=== PATIENT | female | born 1955 | race Caucasian/White ===

== ENCOUNTER 2021-01-18 13:33 | Outpatient (CLI) | payer MEDICARE, SELFPAY ==
--- NOTE | ~2021-01-18 | XR_ITS ---
XR chest 2V DATE: 01/18/2021 13:50 INDICATION: Chest tightness, shortness of breath. COPD. TECHNIQUE: 2 views COMPARISON: 08/31/2013 two-view chest FINDINGS: Mild discoid atelectasis or scarring in the left lower lung. The lungs appear mildly hyperi nflated but clear of infiltrate or consolidation. No pleural effusion or pulmonary vascular congestio n or pneumothorax. Normal heart size. No hilar or mediastinal enlargement. Diffuse osteopenia. IMPRESSION: Moderate hyperinflation; no active cardiopulmonary disease Reviewed, dictated and finalized at location A. D WRAPPER OPERATOR
== END 2021-01-18 13:34 | disposition home or self-care (01) ==
LOC: CHSIMG 13:37
PROVIDERS: PCP Nurse Practitioner Family; Visit Provider Nurse Practitioner Family
DX: J44.9 Chronic obstructive pulmonary disease, unspecified (principal)
CPT/HCPCS: 71046

== ENCOUNTER 2021-08-04 17:43 | Emergency (ER) | payer MEDICARE, SELFPAY ==
--- NOTE | ~2021-08-04 | XR_ITS ---
XR forearm LT 2V 08/04/2021 18:25 Indication: Dog bite. Procedure: 2 views of the left forearm Comparison: No prior studies for comparison. 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 There is loose body adjacent to the fi rst carpal metacarpal joint. There is soft tissue swelling overlying mid forearm no foreign bodies. N o acute fracture or traumatic malalignment. Impression: 1: No acute bone or joint abnormality. Reviewed, dictated and finalized at location A. Impression: 1: No acute bone or joint abnormality.
[2021-08-04 18:09] VITALS: BP 158/69; PULSE 83; RESP 17; TEMP 37.1; O2SAT 98
[2021-08-04 20:21] VITALS: BP 149/66; PULSE 88; RESP 18; O2SAT 100
--- NOTE | 2021-08-04 21:07 | ED.GENADULT ---
HPI - General Adult General Chief complaint: Animal Bite Stated complaint: Dog Bite Time Seen by Provider: 08/04/21 20:37 Source: patient, family and RN notes reviewed Mode of arrival: ambulatory Limitations: no limitations History of Present Illness HPI narrative: Patient is a 66-year-old female who presents with dog bites to the left arm she was with her son when she was playing with his dog and she was bit on the left forearm presents with gaping wounds of the left forearm. Patient notes mild aching pain she is unsure as to her tetanus status injury occurred just prior to arrival she denies any radicular symptoms or paresthesias Related Data Allergies Allergy/AdvReac Type Severity Reaction Status Date / Time No Known Allergies Allergy Verified 08/04/21 20:23 Review of Systems Review of Systems: All systems reviewed & are unremarkable except as noted in HPI and below PMFSH Past Medical History Medical History Asthma COPD (chronic obstructive pulmonary disease) Surgical History Surgical History History of tubal ligation Family History Family History Brother Family history of type 2 diabetes mellitus Mother , Age 58 Acute myocardial infarction Father Lung cancer Social History Social History Smoking packs per day: 1 Smoking cigarettes per day: 20.0 Years smoked: 40 Smoking pack-years: 40.00 Smoking status: Current every day smoker Alcohol intake: current Alcohol use details: social Substance use: never Substance use type: does not use Exam Narrative: GENERAL: Well-appearing, well-nourished, and in no acute distress. HEAD: Normocephalic, atraumatic. EYES: PERRLA and EOMI. ENT: Nares clear, no rhinorrhea or epistaxis. Mucous membranes moist. CHEST: Clear to auscultation. No respiratory distress. No wheezes rales or rhonchi HEART: Regular rate and rhythm. No murmur heard. Normal peripheral pulses. EXTREMITIES: Normal range of motion. No edema. Patient with gaping 4 cm irregular laceration mid forearm patient with another stellate gaping laceration adjacent measuring 2 cm in length. Another 1 cm approximated laceration of the forearm and several small puncture wound SKIN: Warm, dry, no rash. NEURO: No focal deficits. Alert and oriented x3. Neurovascularly intact. Capillary refill less than 2 seconds PSYCH: Normal mood and affect. Course Course Emergency Course: Patient presented with dog bites of the left upper extremity 2 of the bites were loosely approximated given the gaping nature patient's wounds were irrigated and scrubbed and cleaned and explored x-rays were unremarkable she has been given strict reasons to return her tetanus has been updated she feels comfortable with this treatment plan Vital Signs Vital signs: Vital Signs Temperature 98.7 F 08/04/21 18:09 Pulse Rate 83 08/04/21 18:09 Respiratory Rate 17 08/04/21 18:09 Blood Pressure 158/69 H 08/04/21 18:09 Pulse Oximetry 98 08/04/21 18:09 Temperature 98.7 F 08/04/21 18:09 Pulse Rate 88 08/04/21 20:21 Respiratory Rate 18 08/04/21 20:21 Blood Pressure 149/66 H 08/04/21 20:21 Pulse Oximetry 100 08/04/21 20:21 Procedures Laceration Laceration 1: Date: 08/04/21 Time: 21:21 Site: upper extremity Side (If applicable): left Size (cm): 4 Description: irregular Depth: simple, single layer Local Anesthetic: lidocaine 1% Pre-repair: wound explored, irrigated and irrigated extensively ====== Skin Level ====== Skin layer closed with: nylon Size (cm): 4-0 Number of sutures: 4 ====== Subcutaneous Layer ====== ====== Muscle Layer ====== ====== Ten
[2021-08-04] MEDS: TETANUS,DIPHTHERIA,AC PERTUSSIS ADULT (0.5 ML) BOOSTRIX IM (21:36)
[2021-08-04 21:40] VITALS: BP 134/72; PULSE 80; RESP 16; O2SAT 99
== END 2021-08-04 21:41 | disposition home or self-care (01) ==
PROVIDERS: Emergency Provider Family Medicine; PCP Nurse Practitioner Family
DX: S51.812A Laceration without foreign body of left forearm, initial encounter (principal); J44.9 Chronic obstructive pulmonary disease, unspecified; F17.210 Nicotine dependence, cigarettes, uncomplicated; Z87.09 Personal history of other diseases of the respiratory system; Z23 Encounter for immunization; W54.0XXA Bitten by dog, initial encounter
CPT/HCPCS: 12002; 73090; 90471; 90715; 99283

== ENCOUNTER 2022-02-02 09:30 | Outpatient (CLI) | payer MEDICARE, SELFPAY ==
[2022-02-02 09:40] LABS: Basophils Absolute Auto 0.06 K/mm3 (0.00-0.10); Basophils Percent Auto 0.7 % (0.0-1.0); Eosinophils Absolute Auto 0.12 K/mm3 (0.02-0.50); Eosinophils Percent Auto 1.3 % (1.0-6.0); Hematocrit 40.6 % (35.0-42.0); Hemoglobin 13.6 g/dL (11.7-13.8); Immature Granulocyte Absolute 0.03 K/mm3 (0.00-0.00); Immature Granulocyte Percent A 0.3 % (0.0-0.0); Lymphocytes Absolute Auto 2.91 K/mm3 (1.10-4.50); Lymphocytes Percent Auto 31.8 % (18.0-42.0); Mean Corpuscular HGB Conc 33.5 g/dL (32.0-36.0); Mean Corpuscular Hemoglobin 31.6 pg (27.0-31.0); Mean Corpuscular Volume 94.4 fL (78.0-102.0); Mean Platelet Volume 9.1 fl (9.2-11.8); Monocytes Absolute Auto 0.64 K/mm3 (0.10-0.90); Neutrophils Absolute Auto 5.4 K/mm3 (1.7-7.2); Neutrophils Percent Auto 58.9 % (50.0-70.0); Platelet Count Result 363 K/mm3 (150-420); Red Cell Distribution Width 13.1 % (11.6-14.4); White Blood Count 9.2 K/mm3 (4.8-10.8)
[2022-02-02 10:08] LABS: Alanine Aminotransferase 18 U/L (14-59); Albumin Level 3.7 g/dL (3.4-5.0); Alkaline Phosphatase 75 U/L (46-116); Anion Gap 11 mmol/L (8-16); Aspartate Amino Transferase 12 U/L (15-37); Bilirubin,Total 0.4 mg/dL (0.00-1.00); Blood Urea Nitrogen 17 mg/dL (7-18); Calcium 8.8 mg/dL (8.5-10.1); Carbon Dioxide 26 mmol/L (21-32); Chloride 106 mmol/L (98-108); Cholesterol 245 mg/dL (0-200); Estimated Glomerular Filt Rate 50; Glucose 101 mg/dL (70-99); HDL Direct 51 mg/dL (40-60); LDL Cholesterol Calculated 168 mg/dL (<130); Osmolality Calculated 297 mOsm/kg (285-295); Potassium 4.4 mmol/L (3.5-5.1); Sodium 143 mmol/L (136-145); Triglycerides 128 mg/dL (0-150)
== END 2022-02-02 09:31 | disposition home or self-care (01) ==
LOC: CHSLAB 09:32
PROVIDERS: PCP Nurse Practitioner Family; Visit Provider Nurse Practitioner Family
DX: I10 Essential (primary) hypertension (principal)
CPT/HCPCS: 36415; 80053; 80061; 85025

== ENCOUNTER 2023-02-13 10:12 | Outpatient (CLI) | payer MEDICARE, SELFPAY ==
[2023-02-13 10:28] LABS: Basophils Absolute Auto 0.05 K/mm3 (0.00-0.10); Basophils Percent Auto 0.6 % (0.0-1.0); Eosinophils Absolute Auto 0.13 K/mm3 (0.02-0.50); Eosinophils Percent Auto 1.7 % (1.0-6.0); Hematocrit 40.8 % (35.0-42.0); Hemoglobin 13.7 g/dL (11.7-13.8); Immature Granulocyte Absolute 0.02 K/mm3 (0.00-0.00); Immature Granulocyte Percent A 0.3 % (0.0-0.0); Lymphocytes Absolute Auto 3.02 K/mm3 (1.10-4.50); Lymphocytes Percent Auto 38.9 % (18.0-42.0); Mean Corpuscular HGB Conc 33.6 g/dL (32.0-36.0); Mean Corpuscular Hemoglobin 31.9 pg (27.0-31.0); Mean Corpuscular Volume 94.9 fL (78.0-102.0); Mean Platelet Volume 9.3 fl (9.2-11.8); Monocytes Percent Auto 6.4 % (2.0-11.0); Neutrophils Absolute Auto 4.1 K/mm3 (1.7-7.2); Neutrophils Percent Auto 52.1 % (50.0-70.0); Platelet Count Result 306 K/mm3 (150-420); Red Cell Distribution Width 12.5 % (11.6-14.4); White Blood Count 7.8 K/mm3 (4.8-10.8)
[2023-02-13 11:02] LABS: Alanine Aminotransferase 21 U/L (14-59); Albumin Level 3.7 g/dL (3.4-5.0); Alkaline Phosphatase 80 U/L (46-116); Anion Gap 8 mmol/L (8-16); Aspartate Amino Transferase 19 U/L (15-37); Bilirubin,Total 0.5 mg/dL (0.00-1.00); Blood Urea Nitrogen 14 mg/dL (7-18); Carbon Dioxide 28 mmol/L (21-32); Chloride 106 mmol/L (98-108); Cholesterol 225 mg/dL (0-200); Estimated Glomerular Filt Rate 57; Glucose 103 mg/dL (70-99); HDL Direct 54 mg/dL (40-60); LDL Cholesterol Calculated 136 mg/dL (<130); Osmolality Calculated 294 mOsm/kg (285-295); Potassium 4.3 mmol/L (3.5-5.1); Sodium 142 mmol/L (136-145); Total Protein 7.1 g/dL (6.4-8.2); Triglycerides 177 mg/dL (0-150)
[2023-02-15 21:17] LABS: Vitamin D 25 Hydroxy 28 ng/mL (30-100)
== END 2023-02-13 10:13 | disposition home or self-care (01) ==
LOC: CHSLAB 10:14
PROVIDERS: PCP Nurse Practitioner Family; Visit Provider Nurse Practitioner Family
DX: E78.5 Hyperlipidemia, unspecified (principal); I10 Essential (primary) hypertension; Z79.899 Other long term (current) drug therapy
CPT/HCPCS: 36415; 80053; 80061; 82306; 85025

== ENCOUNTER 2023-03-15 11:19 | Outpatient (CLI) | payer MEDICARE, SELFPAY ==
--- NOTE | ~2023-03-15 | XR_ITS ---
XR chest 2V DATE: 03/15/2023 12:00 INDICATION: Shortness of breath for year, getting worse, with chest tightness. History of COPD. TECHNIQUE: 2 views COMPARISON: None FINDINGS: Normal heart size. No hilar or mediastinal enlargement. There is mild aortic tortuosity. There is mild discoid scarring in the left lower lung. Bilateral hyperinflation. No pulmonary infilt rate or consolidation, pulmonary vascular congestion or pleural effusion or pneumothorax. IMPRESSION: Mild discoid scarring, left lower lung Bilateral hyperinflation Reviewed, dictated and finalized at location B.
--- NOTE | 2023-03-15 11:38 | ECG_ITS ---
Measurements Intervals [place] Rate: 53 P: 68 [place]: 179 QRS: 74 QRSD: 84 T: 63 QT: 414 QTc: 390 Interpretive Statements SINUS BRADYCARDIA NONSPECIFIC ST AND T-WAVE ABNORMALITY ABNORMAL ECG NO PREVIOUS ECG AVAILABLE FOR COMPARISON Electronically Signed On 03-16-2023 16:32:52 CDT by Rodrick Sears M.D.
[2023-03-15 12:45] LABS: Free T4 Free Thyroxine 1.13 ng/dL (0.76-1.46); NT Pro B Type Natriuretic Pept 116 pg/mL (0-125); Thyroid Stimulating Hormone 1.26 uIU/mL (0.36-3.74)
== END 2023-03-15 11:20 | disposition home or self-care (01) ==
LOC: CHSLAB 11:21
PROVIDERS: PCP Nurse Practitioner Family; Visit Provider Nurse Practitioner Family
DX: R06.02 Shortness of breath (principal); Z82.49 Family history of ischemic heart disease and other diseases of the circulatory system; R60.9 Edema, unspecified; R53.83 Other fatigue; R91.8 Other nonspecific abnormal finding of lung field; R94.31 Abnormal electrocardiogram [ECG] [EKG]
CPT/HCPCS: 36415; 71046; 83880; 84439; 84443; 93005

== ENCOUNTER 2023-03-21 13:19 | Outpatient (CLI) | payer MEDICARE, SELFPAY ==
--- NOTE | 2023-03-24 08:16 | P.PCNHOL_ITS ---
Holter/Event Monitor Holter/Event Monitor Date of procedure: 03/21/23 Holter/Event Procedure: 48 Hr Holter Monitor Indications: Bradycardia Conclusion: 1. 48 hour holter monitor on 03/21/23. 2. Predominant rhythm is sinus rhythm. HR range 47-111 bpm; average HR 63 bpm. HR at 47 bpm was at 03:15. 3. There are 39 premature supraventricular complexes and 3 supraventricular couplets. There is one episode of atrial tachycardia at 121 bpm lasting 4 beats at 05:03. 4. There are 46 premature ventricular complexes and 3 ventricular bigeminy. No ventricular tachycardia. 5. No sinoatrial or atrioventricular blocks. No significant pauses greater than 2 seconds. 6. Patient reports symptoms of little winded, shortness of breath, very winded and heart beating hard which demonstrate sinus rhythm, HR range 72-85 bpm with o ne PVC.
== END 2023-03-21 13:20 | disposition home or self-care (01) ==
LOC: CHSCARD 13:22
PROVIDERS: PCP Nurse Practitioner Family; Visit Provider Nurse Practitioner Family
DX: R06.02 Shortness of breath (principal); R00.1 Bradycardia, unspecified
CPT/HCPCS: 93225; 93226

== ENCOUNTER 2023-03-27 12:18 | Outpatient (CLI) | payer MEDICARE, SELFPAY ==
--- NOTE | 2023-03-27 12:22 | ECHO_ITS ---
Patient Info Name: Karla Sosa Age: 67 years : 1955 Gender: Female Ht: 61 in Wt: 159 lbs BSA: 1.79 m2 HR: 61 bpm BP: 149 / 55 mmHg Heart Rhythm: Sinus Rhythm Technical Quality: Fair Exam Date: 03/27/2023 12:16 PM Exam Location: [facility] Patient Status: Outpatient Admit Date: 03/27/2023 Staff Ordering Physician: Deana Matias NP Desk Editor: Deb Brennan RDCS Attending Provider: Marlys Callejas MD Referring Physician: Polly BEAR; Exam Type: CA echo doppler color flow Study Info Indications R06.02 - Shortness of breath Complete two-dimensional, color flow and Doppler transthoracic echocardiogram is performed. Summary 1. Complete two-dimensional, color flow and Doppler transthoracic echocardiogram is performed. 2. Left ventricular chamber dimension is mildly enlarged. 3. Left ventricular systolic function is normal, estimated at 55-60%. 4. The left ventricular diastolic function is grade I diastolic dysfunction. 5. E/e' 5 is not elevated. 6. Left atrial chamber dimension is mildly enlarged. 7. There is mild aortic valve sclerosis. 8. There is mild to moderate aortic valve regurgitation. 9. There is mild mitral valve regurgitation. 10. There is trace tricuspid valve regurgitation. 11. No pulmonary hypertension, estimated pulmonary arterial systolic pressure is 19 mmHg. Left Ventricle E/e' 5 is not elevated. Left ventricular chamber dimension is mildly enlarged. Left ventricular systolic function is normal, estimated at 55-60%. The left ventricular diastolic function is grade I diastolic dysfunction. Right Ventricle Right ventricular systolic function is normal and with normal TAPSE 2.1 cm. Right ventricular chamber dimension is normal. Left Atria Left atrial chamber dimension is mildly enlarged. Right Atria Right atrial chamber dimension is normal. Aortic Valve The aortic valve is trileaflet. There is mild aortic valve sclerosis. There is no aortic valve stenosis. There is mild to moderate aortic valve regurgitation. Pulmonic Valve There is no pulmonic regurgitation. Mitral Valve There is no mitral valve stenosis. There is mild mitral valve regurgitation. Tricuspid Valve There is trace tricuspid valve regurgitation. No pulmonary hypertension, estimated pulmonary arterial systolic pressure is 19 mmHg. Pericardium/Pleural There is no pericardial effusion. Inferior Vena Cava Normal inferior vena cava with >50% collapse upon inspiration consistent with normal right atrial pressure, 5 mmHg. Aorta The aortic root size at the sinus of Valsalva is normal. Left Ventricular Outflow Tract Name Value Normal LVOT 2D LVOT Diameter 2.0 cm LVOT Doppler LVOT Peak Velocity 121 cm/s LVOT Peak Gradient 6 mmHg LVOT Mean Gradient 3 mmHg LVOT VTI 26 cm LVOT VTI/AV VTI Ratio 0.7 LVOT Stroke Volume 78 ml Pulmonic Valve Name Value Normal
== END 2023-03-27 12:19 | disposition home or self-care (01) ==
LOC: CHSIMG 12:20
PROVIDERS: PCP Nurse Practitioner Family; Visit Provider Nurse Practitioner Family
DX: R53.83 Other fatigue (principal); R06.02 Shortness of breath; I35.8 Other nonrheumatic aortic valve disorders
CPT/HCPCS: 93306

== ENCOUNTER 2023-06-26 09:07 | Outpatient (CLI) | payer MEDICARE, SELFPAY ==
--- NOTE | 2023-06-26 09:13 | EST_ITS ---
Patient Info Name: Karla Sosa Age: 68 years : 1955 Gender: Female Ht: 62 in Wt: 166 lbs BSA: 1.84 m2 HR: 51 bpm BP: 126 / 55 mmHg Heart Rhythm: Bradycardia Technical Quality: Good Exam Date: 06/26/2023 10:21 AM Exam Location: [facility] [place] Patient Status: Outpatient Admit Date: 06/26/2023 Staff Ordering Physician: Solomon Potter DO Attending Provider: Solomon Potter DO Exercise Technologist: Tisha Chery CRT Exercise Physician: Patrica Wood CEP Exam Type: CA stress christophe w NM Study Info Indications Dyspnea - A nuclear stress test was performed. History/Risk Factors Hypertension: Yes Dyslipidemia: Yes Tobacco Use: Current - Frequency Unknown History/Risk Factors COPD. Dyslipidemia. Hypertension. Smoker. Summary 1. 1. Negative lexiscan stress test for ischemic ST changes by ECG criteria. 2. 2. Stable hemodynamics throughout the test. 3. 3. Nuclear scan to follow and will be reported separately. Please correlate with it. Protocol: LEXISCAN Stress ECG Details Stage: REST Duration (min): 0 min : 53 sec HR (bpm): 52 SBP (mmHg): 126 DBP (mmHg): 55 Stage: REST Duration (min): 4 min : 22 sec HR (bpm): 53 SBP (mmHg): 126 DBP (mmHg): 55 Stage: STAGE 1 Duration (min): 0 min : 11 sec HR (bpm): 53 SBP (mmHg): 126 DBP (mmHg): 55 Stage: RECOVERY Duration (min): 0 min : 48 sec HR (bpm): 65 SBP (mmHg): 126 DBP (mmHg): 55 Stage: RECOVERY Duration (min): 1 min : 48 sec HR (bpm): 68 SBP (mmHg): 126 DBP (mmHg): 55 Stage: RECOVERY Duration (min): 2 min : 48 sec HR (bpm): 65 SBP (mmHg): 125 DBP (mmHg): 61 Stage: RECOVERY Duration (min): 3 min : 48 sec HR (bpm): 62 SBP (mmHg): 113 DBP (mmHg): 55 Stage: RECOVERY Duration (min): 4 min : 48 sec HR (bpm): 59 SBP (mmHg): 126 DBP (mmHg): 80 Stage: RECOVERY Duration (min): 5 min : 48 sec HR (bpm): 58 SBP (mmHg): 122 DBP (mmHg): 69 Stage: RECOVERY Duration (min): 6 min : 2 sec HR (bpm): 58 SBP (mmHg): 122 DBP (mmHg): 69 Rest HR: 53 bpm Peak HR: 71 bpm Rest Sys BP: 126 mmHg Peak Sys BP: 126 mmHg Max Pred HR: 152 bpm % Max Pred HR: 47 % Target HR: 129 bpm Max RPP: 8,946 bpm*mmHg Termination Reason: Completed Protocol Cardiac Symptoms: None Total Time: 0 min : 11 sec Rest Haley BP: 55 mmHg Peak Haley BP: 80 mmHg Total Dose: 0.4 mg Resting ECG Sinus bradycardia. Stress ECG No ST changes. Arrhythmias None. Report Signatures
--- NOTE | 2023-06-29 11:09 | WPDCARIOSTRE ---
Nuclear Stress Test INDICATIONS Indications: Dyspnea PROCEDURE Procedure Performed: Myocardial Perf Spect-Multi Procedure: Patient underwent a lexiscan stress test and immediately was injected with 32 mCi of cardiolyte. Multiple tomographic images were obtained. These are of good quality. There is evidence of small, mild anterior perfusion defect. In addition, there is a large, severe inferior defect during stress imaging. A separate resting images were obtained after patient was injected with 9.4 mCi of cardiolyte. Multiple tomographic images were obtained. These are of good quality. There is evidence of small, mild anterior perfusion defect. In addition, there is a small size, mild inferior defect during rest imaging. CONCLUSION Conclusion: 1. Abnormal myocardial perfusion imaging demonstrating a larger inferior perfusion defect during stress imaging consistent with reversible ischemia. In addition there is a fixed small size anterior defect suggestive of breast attenuation artifact. 2. Left ventriculogram demonstrates normal measure ejection fraction of 63% with no wall motion abnormalities. 3. TID 0.97 is normal.
== END 2023-06-26 09:08 | disposition home or self-care (01) ==
LOC: CHSCARD 09:08
PROVIDERS: PCP Nurse Practitioner Family; Visit Provider Internal Medicine Cardiovascular Disease
DX: R06.09 Other forms of dyspnea (principal); R94.39 Abnormal result of other cardiovascular function study
CPT/HCPCS: 78452; 93017; A9502; J2785

== ENCOUNTER 2023-07-27 08:47 | Outpatient (CLI) | payer MEDICARE, SELFPAY ==
[2023-07-27 09:31] LABS: Alanine Aminotransferase 18 U/L (14-59); Albumin Level 3.7 g/dL (3.4-5.0); Alkaline Phosphatase 87 U/L (46-116); Anion Gap 7 mmol/L (8-16); Aspartate Amino Transferase 17 U/L (15-37); Bilirubin,Total 0.6 mg/dL (0.00-1.00); Blood Urea Nitrogen 19 mg/dL (7-18); Calcium 9.1 mg/dL (8.5-10.1); Carbon Dioxide 30 mmol/L (21-32); Chloride 103 mmol/L (98-108); Cholesterol 212 mg/dL (0-200); Estimated Glomerular Filt Rate 58; Glucose 108 mg/dL (70-99); HDL Direct 50 mg/dL (40-60); LDL Cholesterol Calculated 121 mg/dL (<130); Osmolality Calculated 293 mOsm/kg (285-295); Potassium 3.9 mmol/L (3.5-5.1); Sodium 140 mmol/L (136-145); Total Protein 7.1 g/dL (6.4-8.2); Triglycerides 204 mg/dL (0-150)
== END 2023-07-27 08:48 | disposition home or self-care (01) ==
LOC: CHSLAB 08:50
PROVIDERS: PCP Nurse Practitioner Family; Visit Provider Internal Medicine Cardiovascular Disease
DX: E78.5 Hyperlipidemia, unspecified (principal)
CPT/HCPCS: 36415; 80053; 80061

== ENCOUNTER 2023-08-07 14:32 | Outpatient (NON) | payer MEDICARE, SELFPAY | END 2023-08-07 14:33 | disposition home or self-care (01) | LOC: CHSLAB 14:33 | PROVIDERS: Visit Provider Nurse Practitioner Family | DX: L02.91 Cutaneous abscess, unspecified (principal) | CPT/HCPCS: 87070; 87205 ==

== ENCOUNTER 2023-10-10 08:55 | Outpatient (CLI) | payer MEDICARE, SELFPAY ==
[2023-10-10 09:43] LABS: Alanine Aminotransferase 24 U/L (14-59); Albumin Level 3.8 g/dL (3.4-5.0); Alkaline Phosphatase 112 U/L (46-116); Anion Gap 7 mmol/L (8-16); Aspartate Amino Transferase 20 U/L (15-37); Bilirubin,Total 0.8 mg/dL (0.00-1.00); Blood Urea Nitrogen 18 mg/dL (7-18); Calcium 9.3 mg/dL (8.5-10.1); Carbon Dioxide 31 mmol/L (21-32); Chloride 103 mmol/L (98-108); Cholesterol 211 mg/dL (0-200); Estimated Glomerular Filt Rate 47; Glucose 105 mg/dL (70-99); HDL Direct 52 mg/dL (40-60); LDL Cholesterol Calculated 125 mg/dL (<130); Osmolality Calculated 293 mOsm/kg (285-295); Potassium 4.9 mmol/L (3.5-5.1); Sodium 141 mmol/L (136-145); Total Protein 7.3 g/dL (6.4-8.2); Triglycerides 168 mg/dL (0-150)
== END 2023-10-10 08:56 | disposition home or self-care (01) ==
PROVIDERS: PCP Nurse Practitioner Family; Visit Provider Internal Medicine Cardiovascular Disease
DX: E78.5 Hyperlipidemia, unspecified (principal)
CPT/HCPCS: 36415; 80053; 80061

== ENCOUNTER 2023-12-08 08:56 | Outpatient (CLI) | payer MEDICARE, SELFPAY ==
[2023-12-08 09:47] LABS: Alanine Aminotransferase 30 U/L (14-59); Albumin Level 3.4 g/dL (3.4-5.0); Alkaline Phosphatase 88 U/L (46-116); Anion Gap 10 mmol/L (8-16); Aspartate Amino Transferase 18 U/L (15-37); Bilirubin,Total 0.6 mg/dL (0.00-1.00); Blood Urea Nitrogen 17 mg/dL (7-18); Carbon Dioxide 27 mmol/L (21-32); Chloride 105 mmol/L (98-108); Cholesterol 178 mg/dL (0-200); Estimated Glomerular Filt Rate > 60; Glucose 111 mg/dL (70-99); HDL Direct 54 mg/dL (40-60); LDL Cholesterol Calculated 97 mg/dL (<130); Osmolality Calculated 296 mOsm/kg (285-295); Sodium 142 mmol/L (136-145); Total Protein 6.7 g/dL (6.4-8.2); Triglycerides 133 mg/dL (0-150)
== END 2023-12-08 08:57 | disposition home or self-care (01) ==
LOC: CHSLAB 08:59
PROVIDERS: PCP Nurse Practitioner Family; Visit Provider Internal Medicine Cardiovascular Disease
DX: E78.5 Hyperlipidemia, unspecified (principal)
CPT/HCPCS: 36415; 80053; 80061

== ENCOUNTER 2024-04-15 11:38 | Outpatient (CLI) | payer MEDICARE, SELFPAY ==
[2024-04-15 11:51] LABS: Basophils Absolute Auto 0.04 K/mm3 (0.00-0.10); Basophils Percent Auto 0.5 % (0.0-1.0); Eosinophils Absolute Auto 0.25 K/mm3 (0.02-0.50); Eosinophils Percent Auto 2.9 % (1.0-6.0); Hematocrit 40.5 % (35.0-42.0); Hemoglobin 13.5 g/dL (11.7-13.8); Immature Granulocyte Absolute 0.02 K/mm3 (0.00-0.00); Immature Granulocyte Percent A 0.2 % (0.0-0.0); Lymphocytes Absolute Auto 3.35 K/mm3 (1.10-4.50); Lymphocytes Percent Auto 39.2 % (18.0-42.0); Mean Corpuscular HGB Conc 33.3 g/dL (32-36); Mean Corpuscular Hemoglobin 31.8 pg (27.0-31.0); Mean Corpuscular Volume 95.3 fL (78.0-102.0); Mean Platelet Volume 9.4 fl (9.2-11.8); Monocytes Absolute Auto 0.62 K/mm3 (0.10-0.90); Monocytes Percent Auto 7.3 % (2.0-11.0); Neutrophils Absolute Auto 4.27 K/mm3 (1.70-7.20); Neutrophils Percent Auto 49.9 % (50.0-70.0); Platelet Count Result 276 K/mm3 (150-420); Red Blood Count 4.25 M/mm3 (4.20-5.40); Red Cell Distribution Width 12.7 % (11.6-14.4); White Blood Count 8.6 K/mm3 (4.8-10.8)
[2024-04-15 23:34] LABS: Alanine Aminotransferase 29 U/L (14-59); Albumin Level 3.7 g/dL (3.4-5.0); Alkaline Phosphatase 95 U/L (46-116); Anion Gap 12 mmol/L (4-12); Aspartate Amino Transferase 17 U/L (15-37); Bilirubin,Total 1.1 mg/dL (0.00-1.00); Blood Urea Nitrogen 14 mg/dL (7-18); Calcium 9.1 mg/dL (8.5-10.1); Carbon Dioxide 25 mmol/L (21-32); Chloride 102 mmol/L (98-108); Estimated Glomerular Filt Rate > 60; Free T4 Free Thyroxine 0.89 ng/dL (0.76-1.46); Glucose 84 mg/dL (70-99); NT Pro B Type Natriuretic Pept 161 pg/mL (0-125); Osmolality Calculated 287 mOsm/kg (285-295); Potassium 4.4 mmol/L (3.5-5.1); Sodium 139 mmol/L (136-145); Thyroid Stimulating Hormone 1.37 uIU/mL (0.36-3.74); Total Protein 6.9 g/dL (6.4-8.2)
== END 2024-04-15 11:39 | disposition home or self-care (01) ==
LOC: CHSLAB 11:40
PROVIDERS: PCP Nurse Practitioner Family; Visit Provider Nurse Practitioner Family
DX: R53.83 Other fatigue (principal); R60.9 Edema, unspecified; I25.10 Atherosclerotic heart disease of native coronary artery without angina pectoris; Z82.49 Family history of ischemic heart disease and other diseases of the circulatory system; R06.09 Other forms of dyspnea
CPT/HCPCS: 36415; 80053; 83880; 84439; 84443; 85025

== ENCOUNTER 2024-08-30 04:51 | Day surgery (SDC) | payer MEDICARE, SELFPAY ==
[2024-08-19 10:54] VITALS: BMI 27.8
[2024-08-30 11:20] VITALS: BP 146/65; PULSE 62; RESP 18; TEMP 36.5; O2SAT 98
[2024-08-30] MEDS: LACTATED RINGERS 1,000 ML 150 ML IV CONT (11:45)
--- NOTE | 2024-08-30 11:55 | WPDANESEPPF ---
Anes - Initial Pre Proc Eval Procedure: Operation Date: 08/30/24 14:30 Proposed Procedures p Colonoscopy - Malik Ordaz MD Date/Time: 08/30/24 11:55 Surgeon: Malik Ordaz MD Pre Op Diagnosis: fecal abn Patient Data Age: 69 Gender: F Height: 1.57 m Weight: 68.9 kg Last Vital Signs Temp 36.5 C 08/30/24 11:20 Pulse 62 08/30/24 11:20 Resp 18 08/30/24 11:20 BP 146/65 H 08/30/24 11:20 Pulse Ox 98 08/30/24 11:20 O2 Del Method Room Air 08/30/24 11:20 Allergies Allergy/AdvReac Type Severity Reaction Status Date / Time No Known Allergies Allergy Verified 08/30/24 11:29 Home Medications Medication Instructions Recorded Confirmed Type aspirin 81 mg tablet,delayed 81 mg PO 2XW 04/17/23 08/19/24 History release (Adult Low Dose Aspirin) atorvastatin 40 mg tablet See Rx Instructions .Route 06/14/24 08/30/24 Rx .COMPLEX #90 tabs montelukast 10 mg tablet See Rx Instructions .Route 07/25/24 08/30/24 Rx .COMPLEX #90 tabs fluticasone furoate 200 1 inh inhalation DAILY #180 ea 08/12/24 08/19/24 Rx mcg-vilanterol 25 mcg/dose inhalation powder (Breo Ellipta) albuterol sulfate 90 mcg/actuation See Rx Instructions .Route 08/19/24 08/19/24 History aerosol inhaler .COMPLEX PRN Shortness Of Breath fluticasone propionate 50 1 spray intranasal PRN PRN Nasal 08/19/24 08/19/24 History mcg/actuation nasal Congestion spray,suspension (Allergy Relief (fluticasone)) hydrochlorothiazide 25 mg tablet See Rx Instructions .Route 08/19/24 08/19/24 History .COMPLEX PRN water retenion ipratropium 0.5 mg-albuterol 3 mg See Rx Instructions .Route 08/19/24 08/19/24 History (2.5 mg base)/3 mL nebulization .COMPLEX PRN Shortness Of Breath soln Or Wheezing Patient hx anesthesia problems: none Family hx anesthesia problems: none Results Review: All pre-operative results and documents have been reviewed as part of the pre-operative evaluation. [facility] Past Medical History Medical History Asthma COPD (chronic obstructive pulmonary disease) Glaucoma (06/01/12) Shortness of breath Surgical History Surgical History History of tubal ligation Family History Family History Brother Family history of type 2 diabetes mellitus Mother , Age 58 Acute myocardial infarction Father Lung cancer Social History Social History Smoking packs per day: 1.5 Smoking cigarettes per day: 30.0 Years smoked: 50 Smoking pack-years: 75.00 Smoking status: Current every day smoker Tobacco type: cigarettes and e-cigarettes/vaping Additional smoking assessment comments: currently vapes Alcohol intake: current Alcohol use details: social Substance use: never Substance use type: does not use Do You Feel Safe in your Home?: Yes Lack of Transportation: No Lack of Food: Never True Current Housing: I Have Housing Concerned About Future Housing: No Difficulty Paying Gas/Electric Bills: No Difficulty Paying for Meds: No Currently Unemployed: No Education: High School Diploma/GED Difficulty w/ Childcare or Family Care: No Living arrangements: alone Spiritual care concerns: No Anes - Eval Final PreProcedure Day of Procedure 08/30/24 11:55 Patient weight: overweight Heart: regular rate and rhythm Lungs: clear to auscultation Airway: Mallampati scale class II Neurological: alert and oriented Last oral intake: >/= 8 hours ASA classification: III Emergent: no Anesthetic plan: proceed Anesthesia type and monitoring: general GIVS and standard monitoring Results Review: All pre-operative results and documents have been reviewed as part of the pre-operative evaluation. Infor
--- NOTE | 2024-08-30 12:28 | PM.HPGS ---
History of Present Illness History of Present Illness Consent: Risks, benefits, and alternatives have been discussed and questions answered. Patient agrees to proceed with procedure. Chief complaint: fecal abn Narrative: Karla Sosa is a 69 year old female here for first colonoscopy, + cologuard Review of Systems Review of Systems: All systems reviewed & are unremarkable except as noted in HPI and below PMFSH Past Medical History Medical History (Updated 08/30/24 @ 12:28 by Malik Ordaz MD) Asthma COPD (chronic obstructive pulmonary disease) Glaucoma (06/01/12) Positive colorectal cancer screening using Cologuard test Shortness of breath Surgical History Surgical History History of tubal ligation Family History Family History Brother Family history of type 2 diabetes mellitus Mother , Age 58 Acute myocardial infarction Father Lung cancer Social History Social History Smoking packs per day: 1.5 Smoking cigarettes per day: 30.0 Years smoked: 50 Smoking pack-years: 75.00 Smoking status: Current every day smoker Tobacco type: cigarettes and e-cigarettes/vaping Additional smoking assessment comments: currently vapes Alcohol intake: current Alcohol use details: social Substance use: never Substance use type: does not use Do You Feel Safe in your Home?: Yes Lack of Transportation: No Lack of Food: Never True Current Housing: I Have Housing Concerned About Future Housing: No Difficulty Paying Gas/Electric Bills: No Difficulty Paying for Meds: No Currently Unemployed: No Education: High School Diploma/GED Difficulty w/ Childcare or Family Care: No Living arrangements: alone Spiritual care concerns: No Meds Home Medications and Allergies Home Medications Medication Instructions Recorded Confirmed Type aspirin 81 mg tablet,delayed 81 mg PO 2XW 04/17/23 08/19/24 History release (Adult Low Dose Aspirin) atorvastatin 40 mg tablet See Rx Instructions .Route 06/14/24 08/30/24 Rx .COMPLEX #90 tabs montelukast 10 mg tablet See Rx Instructions .Route 07/25/24 08/30/24 Rx .COMPLEX #90 tabs fluticasone furoate 200 1 inh inhalation DAILY #180 ea 08/12/24 08/19/24 Rx mcg-vilanterol 25 mcg/dose inhalation powder (Breo Ellipta) albuterol sulfate 90 mcg/actuation See Rx Instructions .Route 08/19/24 08/19/24 History aerosol inhaler .COMPLEX PRN Shortness Of Breath fluticasone propionate 50 1 spray intranasal PRN PRN Nasal 08/19/24 08/19/24 History mcg/actuation nasal Congestion spray,suspension (Allergy Relief (fluticasone)) hydrochlorothiazide 25 mg tablet See Rx Instructions .Route 08/19/24 08/19/24 History .COMPLEX PRN water retenion ipratropium 0.5 mg-albuterol 3 mg See Rx Instructions .Route 08/19/24 08/19/24 History (2.5 mg base)/3 mL nebulization .COMPLEX PRN Shortness Of Breath soln Or Wheezing Allergies Allergy/AdvReac Type Severity Reaction Status Date / Time No Known Allergies Allergy Verified 08/30/24 11:29 Vital Signs Vital Signs - 24 hr 08/30/24 11:20 Temperature 97.7 F Pulse Rate 62 Respiratory Rate 18 Blood Pressure 146/65 H Pulse Oximetry 98 Oxygen Delivery Room Air Exam Const: General: comfortable and no acute distress HENMT: Face/Nose/Sinus: Normal nares present Eyes: General: appearance normal, both eyes and all related structures Neck: Neck: no JVD Resp: Auscultation: clear to auscultation bilaterally Cardio: Rate: regular rate Rhythm: regular rhythm GI: Inspection: non-distended GI Palp: Yes Soft to palpation Skin: General skin exam: normal color Neuro: General: gait normal Speech: normal speech Extrem: General: normal to inspection Psych: Mental Statu
[2024-08-30 12:42] VITALS: BP 103/52; PULSE 54; RESP 30; O2SAT 97
[2024-08-30 12:52] VITALS: BP 99/50; PULSE 53; RESP 24; O2SAT 98
[2024-08-30 13:02] VITALS: BP 120/87; PULSE 56; RESP 20; O2SAT 98
== END 2024-08-30 13:10 | disposition home or self-care (01) ==
PROVIDERS: PCP Nurse Practitioner Family; Referring Provider Nurse Practitioner Family; Visit Provider Internal Medicine Gastroenterology
PROC: 0DJD8ZZ Inspection of Lower Intestinal Tract, Via Natural or Artificial Opening Endoscopic (ICD-10-PCS; CPT 45378; principal; 2024-08-30 14:30)
DX: D12.3 Benign neoplasm of transverse colon (principal); D12.8 Benign neoplasm of rectum; K64.8 Other hemorrhoids; J44.9 Chronic obstructive pulmonary disease, unspecified; F17.210 Nicotine dependence, cigarettes, uncomplicated; Z79.82 Long term (current) use of aspirin; Z79.51 Long term (current) use of inhaled steroids; Z98.890 Other specified postprocedural states; Z98.51 Tubal ligation status; Z80.1 Family history of malignant neoplasm of trachea, bronchus and lung; Z82.49 Family history of ischemic heart disease and other diseases of the circulatory system
CPT/HCPCS: 45385; 88305; J2704; J7120

== ENCOUNTER 2024-09-19 12:39 | Outpatient (CLI) | payer MEDICARE, SELFPAY ==
--- NOTE | 2024-09-19 12:44 | ECHO_ITS ---
Patient Info Name: Karla Sosa Age: 69 years : 1955 Gender: Female Ht: 62 in Wt: 154 lbs BSA: 1.77 m2 HR: 65 bpm BP: 163 / 89 mmHg Heart Rhythm: Sinus Rhythm Technical Quality: Good Exam Date: 09/19/2024 12:47 PM Exam Location: [facility], [place] Patient Status: Outpatient Admit Date: 09/19/2024 Staff Ordering Physician: Solomon Potter DO Qa Auditor: Tyron Justin RDCS Attending Provider: Solomon Potter DO Referring Physician: Tariq RICE; Exam Type: CA echo doppler color flow Study Info Indications - nonrhumatic aortic valve insufficency Complete two-dimensional, color flow and Doppler transthoracic echocardiogram is performed. History/Risk Factors Hypertension: Yes Dyslipidemia: Yes Tobacco Use: Current - Frequency Unknown Summary 1. Complete two-dimensional, color flow and Doppler transthoracic echocardiogram is performed. 2. Left ventricular chamber dimension is normal. 3. Left ventricular systolic function is normal, estimated at 60-65%. 4. The left ventricular diastolic function is normal. 5. E/e' 9 is minimally elevated. 6. There is mild aortic valve sclerosis. 7. There is moderate aortic valve regurgitation. 8. There is mild mitral valve regurgitation. 9. No pulmonary hypertension, estimated pulmonary arterial systolic pressure is 22 mmHg. Recommendations * Smoking cessation counseling is recommended for this patient. Left Ventricle E/e' 9 is minimally elevated. Left ventricular chamber dimension is normal. Left ventricular systolic function is normal, estimated at 60-65%. The left ventricular diastolic function is normal. Right Ventricle Right ventricular systolic function is normal and with normal TAPSE 3.3 cm. Right ventricular chamber dimension is normal. Left Atria Left atrial chamber dimension is normal. Right Atria Right atrial chamber dimension is normal. Aortic Valve The aortic valve is trileaflet. There is mild aortic valve sclerosis. There is no aortic valve stenosis. There is moderate aortic valve regurgitation. Pulmonic Valve There is no pulmonic regurgitation. Mitral Valve There is no mitral valve stenosis. There is mild mitral valve regurgitation. Tricuspid Valve There is no tricuspid valve regurgitation. No pulmonary hypertension, estimated pulmonary arterial systolic pressure is 22 mmHg. Pericardium/Pleural There is no pericardial effusion. Inferior Vena Cava Normal inferior vena cava with >50% collapse upon inspiration consistent with normal right atrial pressure, 5 mmHg. Aorta The aortic root size at the sinus of Valsalva is normal. Left Ventricular Outflow Tract Name Value Normal LVOT 2D LVOT Diameter 2.2 cm LVOT Doppler LVOT Peak Velocity 104 cm/s LVOT Peak Gradient 4 mmHg LVOT Mean Gradient 2 mmHg LVOT VTI 23 cm LVOT VTI/AV VTI Ratio 0.6 LVOT Stroke Volume 88 ml Mitral Valve Name Value Normal
== END 2024-09-19 12:40 | disposition home or self-care (01) ==
LOC: CHSIMG 12:41
PROVIDERS: PCP Nurse Practitioner Family; Visit Provider Internal Medicine Cardiovascular Disease
DX: I35.1 Nonrheumatic aortic (valve) insufficiency (principal); I08.0 Rheumatic disorders of both mitral and aortic valves
CPT/HCPCS: 93306

== ENCOUNTER 2025-03-25 09:34 | Outpatient (CLI) | payer MEDICARE, SELFPAY ==
--- OUTSIDE RECORDS SUMMARY | 2025-03-25 10:33 | XMS_ITS | Referral Summary ---
Author Organization [facility] Address [address] [place] [address] Care Team Providers Care Scientific Database Curator Name Role Phone Unknown, Notinfile Primary Care Provider Unavail able Allergies No known active allergies Social History Tobacco Use Types Packs/Day Years Used Date Smoking Tobacco: Never Assessed Personal Safety Answer Date Recorded Getting School Help Needed Not on file 01/27 Comments Unknown Sex and Gender Information Value Date Recorded Sex Assigned at Not on file Legal Sex Female 9:36 AM CDT Gender Identity Not on file Sexual Orientation Not on file Last Filed Vital Signs Vital Sign Reading Time Taken Comments Blood Pressure 142/61 07/24/2023 1:32 PM CDT Pulse 61 07/24/2023 1:32 PM CDT Temperature - - Respiratory Rate - - Oxygen Saturation - - Inhaled Oxygen Concentration - - Weight - - Height - - Body Mass Index - - Plan of Treatment Not on file Insurance MEDICARE AET SENIOR SUPPLEMENT [facility] [facility] Care Teams Scientific Database Curator Relationship Specialty Start Date End Date Unknown, Notinfile PCP - General 07/08/23
--- OUTSIDE RECORDS SUMMARY | 2025-03-25 10:33 | XMS_ITS | Clinical Summary ---
Author Organization [facility] Address [address] [place] [address] Care Team Providers Care Laser Beam Trim Operator Name Role Phone Unknown, Notinfile Primary Care [...] Mass Index - - Plan of Treatment Health Maintenance Due Date Last Done Comments Breast Cancer Screening-Mammogram 1955 Colon Cancer Screening-Colonoscopy 1955 Depression Screening 1955 Fall Risk Assessment 1955 Hepatitis C Screening 1955 Osteoporosis Screening-Bone Density Scan 1955 Hepatitis B Screening 1973 Pneumococcal vaccine 65+ (1 of 1 - PCV) 2005 Zoster Vaccine (1 of 2) 2005 Well Visit 65+ 2020 Covid-19 Vaccine ( - season) 2024 10/11/2021, 02/05/2021, 01/09/2021 Influenza Vaccine (Season Ended) 2025 09/18/20 22 DTaP/Tdap/Td Vaccine (2 - Td or Tdap) 08/04/203106/2021 Insurance MEDICARE AETNA SENIOR SUPPLEMENT AETNA MEDICARE AETNA [facility] PPO Care Teams Laser Beam Trim Operator Relationship Specialty Start Date End Date Unknown, Notinfile PCP - General 07/08/23
[2025-03-25 10:54] LABS: Alanine Aminotransferase 31 U/L (14-59); Albumin Level 3.7 g/dL (3.4-5.0); Alkaline Phosphatase 110 U/L (46-116); Anion Gap 4 mmol/L (4-12); Aspartate Amino Transferase 27 U/L (15-37); Bilirubin,Total 0.6 mg/dL (0.00-1.00); Blood Urea Nitrogen 20 mg/dL (7-18); Calcium 9.2 mg/dL (8.5-10.1); Carbon Dioxide 32 mmol/L (21-32); Chloride 104 mmol/L (98-108); Cholesterol 192 mg/dL (0-200); Estimated Glomerular Filt Rate 49; Glucose 109 mg/dL (70-99); HDL Direct 60 mg/dL (40-60); LDL Cholesterol Calculated 111 mg/dL (<130); Osmolality Calculated 293 mOsm/kg (285-295); Sodium 140 mmol/L (136-145); Total Protein 7.1 g/dL (6.4-8.2); Triglycerides 107 mg/dL (0-150)
== END 2025-03-25 09:35 | disposition home or self-care (01) ==
PROVIDERS: PCP Nurse Practitioner Family; Visit Provider Internal Medicine Cardiovascular Disease
DX: E78.5 Hyperlipidemia, unspecified (principal)
CPT/HCPCS: 36415; 80053; 80061